=== PATIENT | male | born 1980 | race African-American/Black ===

== ENCOUNTER 2018-04-11 22:13 | Emergency (ER) | payer OTHER ==
[~2018-04-11] VITALS: Ht 170.2 cm; Wt 74.8 kg
[2018-04-11 22:20] VITALS: BP 130/76
--- NOTE | 2018-04-11 22:24 | NUR ---
ED Nurse Note: Patient has c/o of swollen submental gland. no pain.
--- NOTE | 2018-04-11 22:51 | Emergency Room Report ---
History of Present Illness General Chief Complaint: Edema Source: Patient Present Illness HPI Patient complains of swelling around his eyes and under his chin that began yesterday. It's worsened over the last day however it seems stabilizing at this time. He has no trouble swallowing. There is no difficulty breathing, wheezing. He feels no dizziness and has no nausea or vomiting. There is no eye itching or itchiness of his throat. 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 He denies any change in soaps or foods recently. His never had an allergic reaction before. There is no exposure to asbestos. There is no familial history of edema or angioedema. No fevers, chills, chest pain, palpitations, diarrhea, dysuria, abdominal pain, shortness of breath, depression, visual changes, headache. 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 Reviewed Nursing Documentation: PMH: Agreed; PSxH: Agreed Nursing Documentation-PMH Past Medical History: No Stated History Review of Systems All Other Systems: negative except mentioned in HPI Physical Exam Vital Signs Date Time Temp Pulse Resp B/P (MAP) Pulse Ox O2 Delivery O2 Flow Rate FiO2 04/11/18 22:21 98.1 103 18 159/107 93 Room Air Sp02 EP Interpretation: reviewed, abnormal - Interpreted as low by me General Appearance: well appearing, no apparent distress, GCS 15 Head: normocephalic, atraumatic Eyes: bilateral eye normal inspection, bilateral eye PERRL, bilateral eye other - Periorbital edema ENT: normal pharynx, no angioedema, moist mucus membranes, other - Swelling underneath the tongue Neck: full range of motion, supple, other - No stridor Respiratory: lungs clear, normal breath sounds, no respiratory distress, speaking full sentences Cardiovascular #1: regular rate, rhythm, other - No extremity edema Cardiovascular #2: 2+ femoral (R) Gastrointestinal: normal inspection, normal bowel sounds, non tender, soft Musculoskeletal: back normal, digits/nails normal, gait/station normal, normal range of motion, no calf tenderness Neurologic: alert, oriented x3, normal gait, grossly normal Psychiatric: mood/affect normal Skin: no rash, other - No wheal and flare reaction. There is periorbital edema Medical Decision Making Diagnostic Impression: Primary Impression: Allergic reaction Qualified Codes: T78.40XA - Allergy, unspecified, initial encounter ER Course Patient presents with facial swelling and swelling underneath his jaw. There is no angioedema. He reports no new foods or soaps. He does have possible exposure at work. This appears to be allergic reaction as there is no fever. He'll be treated with prednisone and Benadryl. He has no airway compromise and therefore epinephrine is not indicated. Etiology of allergic reaction is unclear at this time however is exposed to multiple substances with what he works with. Patient's reaction is unchanged during observation in the emergency department. It is felt that the airway is stable at this time. Patient is advised that if there is increased swelling in his pharynx and tongue to return. Consideration for treatment with epinephrine. Patient stable for outpatient observation and treatment. Last Vital Signs Date Time Temp Pulse Resp B/P (MAP) Pulse Ox O2 Delivery O2 Flow Rate FiO2 04/12/18 00:00 98.0 69 15 132/71 99 Room Air 99 Status: improved Disposition: HOME, SELF-CARE Condition: Improved Scripts Diphenhydramine Hcl* (BENADRYL*) 25 Mg Capsule 25 MG ORAL Q6H PRN for Itching, #14 CAP Prov: Girish Jeff MD 04/11/18 Prednisone* (PREDNISONE*) 20 Mg Tablet 40 MG ORAL DAILY, #10 TAB Prov: Girish Jeff MD 04/11/18 Girish Jeff MD Apr 11, 2018 22:51
[2018-04-11] MEDS ORDERED: PREDNISONE20 MG ORAL (23:24)
[2018-04-11] MEDS ORDERED: BENADRYL25 MG ORAL (23:24)
[2018-04-11 23:59] VITALS: BP 132/71
[2018-04-12] VITALS: BP 132/71
--- NOTE | 2018-04-12 00:02 | NUR ---
ED Nurse Note: PT is medically cleared per ERMD order. pt is stable for transfer. pt status condition and vital signs are reported to ERMD prior to DC. pt vital signs are stable. pt is alert and oriented times 4. pt left with all belongings, including DC ntoes and prescriptions. pt was able to teach back and understands DC notes and prescription. pt is instructed to follow up with primary MD as soon as possible, pt is instructed to return to ER if any variance in condition. ID band removed. pt is able to ambulate. pt is alert and oriented times 4. pt is stable for DC as per ERMD orders.
== END 2018-04-12 00:10 | disposition home or self-care (01) ==
LOC: EMR 22:37
DX: T78.40XA Allergy, unspecified, initial encounter (principal); X58.XXXA Exposure to other specified factors, initial encounter; R60.0 Localized edema; Z91.018 Allergy to other foods
CPT/HCPCS: 99283; J7512

== ENCOUNTER 2018-04-16 17:53 | Emergency (ER) | payer OTHER ==
[~2018-04-16] VITALS: Ht 170.2 cm; Wt 74.8 kg
[~2018-04-16 17:53] MED LIST: BENADRYL25 MG ORAL; PREDNISONE20 MG ORAL
[2018-04-16 18:14] VITALS: BP 134/85
--- NOTE | 2018-04-16 18:14 | NUR ---
ED Nurse Note: Patient arrived in ER, alert and oriented, ambulatory. No s/sx of distress. With complain of throat pain and swelling. He was also in ER 04/11/18 for the same reason and was prescribed with medications. But per patient hist throat is more swollen. Noted swelling of throat and under his tongue.
[2018-04-16] MEDS ORDERED: Sodium Chloride 500ML 500 ML IV ONE (18:15)
[2018-04-16] MEDS ORDERED: Isovue-300 100ml vial INJ PRN (18:15)
[2018-04-16] MEDS ORDERED: DiphenhydrAMINE 50mg/ml Inj IVP ONE (18:15)
[2018-04-16] MEDS ORDERED: Etomidate 40mg/20ml Inj IV ONE (18:39)
[2018-04-16] MEDS ORDERED: Zemuron 50mg/5ml Inj IV ONE (18:39)
[2018-04-16] MEDS ORDERED: Clindamycin 600mg 50 ML IVPB ONE (18:45)
[2018-04-16 19:03] LABS: BASOPHILS % (AUTO) 2.2 % (0.0-2.0); HEMATOCRIT 45.5 % (42.0-52.0); HEMOGLOBIN 15.5 G/DL (14.2-18.0); LYMPHOCYTES % (AUTO) 9.2 % (20.0-45.0); MEAN CORPUSCULAR VOLUME 98 FL (80-99); MONOCYTES % (AUTO) 9.8 % (1.0-10.0); NEUTROPHILS % (AUTO) 78.9 % (45.0-75.0); PLATELET COUNT 240 K/UL (150-450); RED BLOOD COUNT 4.66 M/UL (4.70-6.10); RED CELL DISTRIBUTION WIDTH 11.8 % (11.6-14.8); WHITE BLOOD COUNT 16.8 K/UL (4.8-10.8)
--- NOTE | 2018-04-16 19:16 | NUR ---
HAND-OFF: Report given to Froilan Jay RN. Patient resting comfortably. No distress noted. VS within range. Waiting for room in telemetry.
--- NOTE | 2018-04-16 19:18 | NUR ---
ED Nurse Note: Received patient from MELVI Hair. Pt sitting comfortably. AO4. NAD VSS.
[2018-04-16 19:22] LABS: ANION GAP 11 mmol/L (5-15); BLOOD UREA NITROGEN 13 mg/dL (7-18); CALCIUM 9.3 MG/DL (8.5-10.1); CARBON DIOXIDE 26 MMOL/L (21-32); CHLORIDE 101 MMOL/L (98-107); CREATININE 1.2 MG/DL (0.55-1.30); POTASSIUM 3.7 MMOL/L (3.5-5.1); SODIUM 138 MMOL/L (136-145)
[2018-04-16 19:27] LABS: ALANINE AMINOTRANSFERASE 20 U/L (12-78); ALBUMIN 3.6 G/DL (3.4-5.0); ALBUMIN/GLOBULIN RATIO 0.9 (1.0-2.7); ALKALINE PHOSPHATASE 73 U/L (46-116); ASPARTATE AMINO TRANSFERASE 10 U/L (15-37); BILIRUBIN,TOTAL 0.4 MG/DL (0.2-1.0)
[2018-04-16] MEDS ORDERED: Ampicillin/Sulbactam Sod 3 GM in NS 110 ML IVPB ONE (20:15)
--- NOTE | 2018-04-16 21:12 | NUR ---
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
--- NOTE | 2018-04-16 21:23 | NUR ---
ED Nurse Note: Pt prepared for intubation: Etomidate 20mg IV and Rocuronium 30mg IV given. 2112: Intubated with 7.[address] Antonio.
[2018-04-16] MEDS ORDERED: LORazepam Inj 2mg/ml 1ml ONE (21:57)
[2018-04-16] MEDS ORDERED: LORazepam Inj 2mg/ml 1ml IV ONE (22:00)
--- NOTE | 2018-04-16 23:40 | Emergency Room Report ---
History of Present Illness General Chief Complaint: Allergic Reaction Source: Patient Present Illness HPI 37-year-old male presents ED for evaluation. Patient complaining of pain and swelling to his throat. States he was seen here about 5 days ago for similar problem. Considered to be allergies from his work environment. Was discharged with prednisone and Benadryl. States he is here taking the medications are not helping and his symptoms are worse. Notes pain and swelling to his throat. Throbbing, 8 out of 10, nonradiating. States there is difficulty with swallowing. Denies fevers or chills. No other aggravating relieving factors. Denies any other associated symptoms Allergies: Coded Allergies: BANANA (Verified Allergy, Severe, Anaphylaxis, 04/11/18) AVOCADO (Verified Allergy, Intermediate, Hives, 04/11/18) Patient History Past Medical History: none Past Surgical History: none Pertinent Family History: none Social History: Denies: smoking, alcohol use, drug use Immunizations: UTD Reviewed Nursing Documentation: PMH: Agreed; PSxH: Agreed Nursing Documentation-PMH Past Medical History: No Stated History Review of Systems All Other Systems: negative except mentioned in HPI Physical Exam Vital Signs Date Time Temp Pulse Resp B/P (MAP) Pulse Ox O2 Delivery O2 Flow Rate FiO2 04/16/18 18:02 100.9 108 20 134/85 95 Room Air 04/16/18 21:10 40 Sp02 EP Interpretation: reviewed, normal General Appearance: no apparent distress, alert, GCS 15, non-toxic Head: normocephalic Eyes: bilateral eye normal inspection, bilateral eye PERRL ENT: TMs + canals normal, other - swelling to floor of mouth Neck: supple/symm/no masses, other - induration/erythema to soft tissue under chin Respiratory: chest non-tender, lungs clear, normal breath sounds, speaking full sentences Cardiovascular #1: regular rate, rhythm, no edema Gastrointestinal: normal inspection Rectal: deferred Genitourinary: no CVA tenderness Musculoskeletal: normal inspection Neurologic: alert, oriented x3, responsive, motor strength/tone normal, sensory intact, speech normal Psychiatric: normal inspection Skin: normal inspection Lymphatic: normal inspection Procedures Critical Care Time Critical Care Time i. I feel this is a highly complex case requiring extensive working including EKG/Rhythm strip, Xray/CT/US, Blood/urine lab work, repeat exams while in ED, and administration of strong opiates/narcotics for pain control, admission to hospital or close patient follow up. Total time: 60 min bedside evaluation and treatment excludes procedures (EKG). Reason for critical care: ludwigs angina, airway compromise Possible complications: hypotension, hypertension, NV, shock, arrhythmias, metabolic acidosis, end organ damage, respiratory failure. Interventions: labs, decadron, clindamycin, unasyn, CT neck with contrast. consultation with ENT at [facility]. intubation. Course: Patient presenting with pain and swelling to the neck and throat. Clinically concerning for ludwigs angina. Labs show significant leukocytosis. Given Decadron, clindamycin, Unasyn. CT confirms abscess to the floor the mouth with extension of swelling and epiglottitis. Discussed with ENT at [facility]. Recommends intubation for airway protection. Intubated using glidescope with surgery at bedside. Consultations: nursing staff, EMS, family Performed by: Dr Antonio Tolerated well condition = critical j. because of unstable vital signs this patient had a condition that could potentially threaten life or limb. I feel this is a critical patient who required my full attention while patient was considered critical. Total Critical Care Time excluding procedures was greater than 60 minutes Intubation Intubation : Consent: Emergent Intubation Method: orotracheal Tube Size (cm): 7.5 Medications: Etomidate, Rocuronium Breath Sounds after Intubation: equal Intubation Complications: no complications Post Intubation Xray: Yes Attempts: One Patient Tolerated: Well Complications: None Medical Decision Making Diagnostic Impression: Primary Impression: Ludwigs angina ER Course 37-year-old male presents ED with pain and swelling to mouth and lower jaw. Differentialretropharyngeal abscess, peritonsillar abscess, cellulitis, ludwigs angina Patient placed on stretcher. After initial history and physical I ordered labs , IV fluids, Decadron, clindamycin and CT of neck with contrast Labsthere is significant leukocytosis, hemoglobin/hematocrit stable, Electrolytes ok CT shows abscess of the floor the mouth with surrounding inflammation. Epiglottitis. Concern for sudden airway compromise. Patient saturating well, talking without difficulty. After discussion with ENT at [facility] decision was made to intubate patient Surgery Dr Montano at bedside. Intubation was performed with glidescope and bougie as anatomy was markedly distorted and could not adequately visualize the cords Chest x-ray confirms intubation EKG - NSR, no acute ischemic changes interpreted by me Discussed with at bedside. Understands plan that patient will be transferred to [facility] Diagnosis Ludwigs Angina Transferred to [facility] in critical condition Labs Test 04/16/18 18:34 White Blood Count 16.8 K/UL (4.8-10.8) Red Blood Count 4.66 M/UL (4.70-6.10) Hemoglobin 15.5 G/DL (14.2-18.0) Hematocrit 45.5 % (42.0-52.0) Mean Corpuscular Volume 98 FL (80-99) Mean Corpuscular Hemoglobin 33.3 PG (27.0-31.0) Mean Corpuscular Hemoglobin Concent 34.1 G/DL (32.0-36.0) Red Cell Distribution Width 11.8 % (11.6-14.8) Platelet Count 240 K/UL (150-450) Mean Platelet Volume 7.7 FL (6.5-10.1) Neutrophils (%) (Auto) 78.9 % (45.0-75.0) Lymphocytes (%) (Auto) 9.2 % (20.0-45.0) Monocytes (%) (Auto) 9.8 % (1.0-10.0) Eosinophils (%) (Auto) 0.0 % (0.0-3.0) Basophils (%) (Auto) 2.2 % (0.0-2.0) Sodium Level 138 MMOL/L (136-145) Potassium Level 3.7 MMOL/L (3.5-5.1) Chloride Level 101 MMOL/L (98-107) Carbon Dioxide Level 26 MMOL/L (21-32) Anion Gap 11 mmol/L (5-15) Blood Urea Nitrogen 13 mg/dL (7-18) Creatinine 1.2 MG/DL (0.55-1.30) Estimat Glomerular Filtration Rate > 60 mL/min (>60) Glucose Level 116 MG/DL (74-106) Calcium Level 9.3 MG/DL (8.5-10.1) Total Bilirubin 0.4 MG/DL (0.2-1.0) Aspartate Amino Transf (AST/SGOT) 10 U/L (15-37) Alanine Aminotransferase (ALT/SGPT) 20 U/L (12-78) Alkaline Phosphatase 73 U/L (46-116) Total Protein 7.6 G/DL (6.4-8.2) Albumin 3.6 G/DL (3.4-5.0) Globulin 4.0 g/dL Albumin/Globulin Ratio 0.9 (1.0-2.7) EKG Diagnostic Results Rate: normal Rhythm: NSR ST Segments: no acute changes ASA given to the pt in ED: No Rhythm Strip Diag. Results EP Interpretation: yes Rhythm: NSR, no PVC's, no ectopy Chest X-Ray Diagnostic Results Chest X-Ray Diagnostic Results : Chest X-Ray Ordered: Yes # of Views/Limited/Complete: 1 View Indication: Other - intubation EP Interpretation: Yes Interpretation: no consolidation, no effusion, no pneumothorax, no acute cardiopulmonary disease, other - ET tube in place Impression: Other - intubated Electronically Signed by: Electronically signed by Everardo Antonio MD CT/MRI/US Diagnostic Results CT/MRI/US Diagnostic Results : Imaging Test Ordered: CT neck Impression 3 cm rim-enhancing abscess at floor of mouth and inflammation. Epiglottis enlarged with possible acute epiglottitis Last Vital Signs Date Time Temp Pulse Resp B/P (MAP) Pulse Ox O2 Delivery O2 Flow Rate FiO2 04/16/18 22:50 86 17 40 04/16/18 18:14 98.9 134/85 95 Room Air Status: improved Disposition: XFER SHT-TRM HOSP Condition: Critical Referrals: [facility],REFERR[facility] (PCP) Everardo Antonio MD Apr 16, 2018 23:40
--- NOTE | 2018-04-16 23:44 | NUR ---
ED Nurse Note: Report victor manuel Knapp RN of [facility]. Patient to be admited to Tele [id number] under the care of Dr. Mcgovern
[2018-04-17] VITALS: BP 126/78
--- NOTE | 2018-04-17 00:10 | NUR ---
ED Nurse Note: Report given to [facility]. Patient in stable contion. Left with EMS and critical care transport nurse.
--- NOTE | 2018-04-17 08:56 | Diagnostic Imaging Report ---
Indication: Throat pain and swelling Technique: IV administration nonionic contrast. Spiral acquisitions obtained through the neck. Multiplanar reconstructions were generated. Total dose length product 510.43 mGycm. CTDIvol(s) 17.81 mGy. Dose reduction achieved using automated exposure control Comparison: none Findings: Complex shaped area of low attenuation with rim enhancement is seen in the floor the mouth. This measures approximately 3.2 cm transverse by 2 cm AP by 2.4 cm craniocaudad. On the left, this extends cephalad medial to the mandible. Ill-defined low-attenuation is seen in the posterior tongue base. There is swelling of the epiglottis which also contains rim-enhancing low attenuation, area measures 12 x 7 mm in diameter. This extends into the periepiglottic soft tissues. This results in airway narrowing which may be severe The tonsils are mildly prominent. No prevertebral soft tissue swelling or evidence of prevertebral/retropharyngeal abscess. Soft tissue thickening of the subcutaneous fat below the mandible bilaterally is noted, as well as thickening of the platysma musculature. No worrisome sinus opacification demonstrated. No cervical mass or adenopathy. The salivary glands are unremarkable. The dentition appears intact. No fractures. There are described degenerative cervical spondylosis changes, with at least moderate spinal stenosis at the C5-6 level. The thyroid is unremarkable. The upper mediastinum is unremarkable. The included lung apices are clear. The included intracranial structures are unremarkable. Impression: 3. 2 x 2 by 2.4 cm abscess involving the floor the mouth. There is fairly extensive surrounding cellulitis and myositis. Thickening of the epiglottis with possible early abscess formation. This results in significant airway compromise Degenerative spondylosis, with at least moderate spinal stenosis at the C5-6 level This agrees with the preliminary interpretation provided overnight by Dr. Cote. Critical value findings phoned to Dr. Antonio by Dr. Cote when the exam was performed The CT scanner at [facility] is accredited by the [employer] and the scans are performed using protocols designed to limit radiation exposure to as low as reasonably achievable to attain images of sufficient resolution adequate for diagnostic evaluation.
--- NOTE | 2018-04-17 09:13 | Diagnostic Imaging Report ---
Indication: Post intubation Technique: One view of the chest Comparison: none Findings: There is an endotracheal tube in place. This is in satisfactory position, tip approximately 5 cm above the irma. The lungs and pleural spaces are clear. Heart size is upper limits normal Impression: Satisfactory endotracheal intubation No acute pulmonary process
== END 2018-04-17 00:10 | disposition short-term general hospital (02) ==
LOC: EMR 18:38
DX: K12.2 Cellulitis and abscess of mouth (principal); Z91.018 Allergy to other foods
CPT/HCPCS: 31500; 36415; 70491; 71045; 80053; 85025; 94002; 96365; 96367; 96375; 99291; J0295; J1200; J7040; Q9967; S0077